=== PATIENT | female | born 1975 | race Caucasian/White ===

== ENCOUNTER 2016-04-11 12:18 | Emergency (ER) | payer OTHER ==
[~2016-04-11] VITALS: Ht 157.5 cm; Wt 54.0 kg
[2016-04-11 12:35] VITALS: PULSE 90; RESP 20; TEMP 98.6; O2SAT 98
[2016-04-11] MEDS ORDERED: ALPR.25 PO (12:47)
[2016-04-11] MEDS ORDERED: RANI150T PO (12:47)
--- NOTE | 2016-04-11 13:04 | PD ---
HPI Chief Complaint: Cold / Flu Symptoms Time Seen by Provider: 12:52 Travel History International Travel<30 days: No Contact w/Intl Traveler<30days: No Traveled to known affect area: No History of Present Illness HPI This 40-year-old female is complaining of some chest pressure. She had a head cold last week. She felt like it moved down to her chest and she was coughing. He went to see her doctor and the nurse practitioner put her on prednisone and a Z-Dany. The coughing has subsided but now she is having some pressure in the chest which is worse when she takes a deep breath. She's been feeling tired and sleepy at times. She feels like some sitting on her chest. He has a history of allergies but does not have a history of asthma. Is apparently wheezing when she went to see Dr. Leung. She has a history of GERD. She is not aware of fever. The pressure that she hasn't had chest is worse with deep breathing. PFSH Past Medical History Anxiety: Yes GERD: Yes ?: Unknown LMP: 4 WEEKS AGO Past Surgical History Cholecystectomy: Yes Social History Alcohol Use: Yes (WEEKLY, 3 GLASSES WINE) Tobacco Use: Yes (QUIT 5 YEARS AGO, / PPD) Substance Use: No Allergies-Medications (Allergen,Severity, Reaction): Coded Allergies: Leticialor (Verified Allergy, Severe, 04/11/16) Reported Meds & Prescriptions Reported Meds & Active Scripts Active Reported Ranitidine (Ranitidine HCl) 150 Mg Tab 150 Mg PO HS Xanax (Alprazolam) 0.25 Mg Tab 0.25 Mg PO Q6H PRN Review of Systems General / Constitutional: No: Fever, Chills Eyes: No: Diploplia, Blurred Vision HENT: No: Headaches Cardiovascular: Positive: Chest Pain or Discomfort Respiratory: Positive: Wheezing Gastrointestinal: No: Nausea, Vomiting Genitourinary: No: Urgency, Frequency Musculoskeletal: No: Myalgias, Arthralgias Skin: No Rash Physical Exam Narrative GENERAL: Well-developed female SKIN: Warm and dry. HEAD: Atraumatic. Normocephalic. EYES: Pupils equal and round. No scleral icterus. No injection or drainage. ENT: No nasal bleeding or discharge. Mucous membranes pink and moist. NECK: Trachea midline. No JVD. CARDIOVASCULAR: Regular rate and rhythm. No murmur appreciated. RESPIRATORY: No accessory muscle use. Clear to auscultation. Breath sounds equal bilaterally. GASTROINTESTINAL: Abdomen soft, non-tender, nondistended. Hepatic and splenic margins not palpable. MUSCULOSKELETAL: No obvious deformities. No clubbing. No cyanosis. No edema. NEUROLOGICAL: Awake and alert. No obvious cranial nerve deficits. Motor grossly within normal limits. Normal speech. PSYCHIATRIC: Appropriate mood and affect; insight and judgment normal. Data Data Last Documented VS Vital Signs Date Time Temp Pulse Resp B/P Pulse Ox O2 Delivery O2 Flow Rate FiO2 04/11/16 12:35 98.6 90 20 98 Orders Electrocardiogram (04/11/16 12:59) Complete Blood Count With Diff (04/11/16 12:59) Basic Metabolic Panel (Bmp) (04/11/16 12:59) Ed Urine Pregnancytest Poc (04/11/16 12:59) Chest, Pa & Lat (04/11/16 13:18) Potassium Chloride (Kcl) (04/11/16 14:45) Labs Laboratory Tests Test 04/11/16 13:05 White Blood Count 13.4 TH/MM3 Red Blood Count 4.52 MIL/MM3 Hemoglobin 13.9 GM/DL Hematocrit 40.9 % Mean Corpuscular Volume 90.5 FL Mean Corpuscular Hemoglobin 30.8 PG Mean Corpuscular Hemoglobin 34.0 % Concent Red Cell Distribution Width 12.1 % Platelet Count 327 TH/MM3 Mean Platelet Volume 8.2 FL Neutrophils (%) (Auto) 89.6 % Lymphocytes (%) (Auto) 8.8 % Monocytes (%) (Auto) 1.4 % Eosinophils (%) (Auto) 0.0 % Basophils (%) (Auto) 0.2 % Neutrophils # (Auto) 12.0 TH/MM3 Lymphocytes # (Auto) 1.2 TH/MM3 Monocytes # (Auto) 0.2 TH/MM3 Eosinophils # (Auto) 0.0 TH/MM3 Basophils # (Auto) 0.0 TH/MM3 CBC Comment DIFF FINAL Differential Comment Sodium Level 140 MEQ/L Potassium Level 3.4 MEQ/L Chloride Level 105 MEQ/L Carbon Dioxide Level 26.7 MEQ/L Anion Gap 8 MEQ/L Blood Urea Nitrogen 12 MG/DL Creatinine 0.69 MG/DL Estimat Glomerular Filtration 95 ML/MIN Rate Random Glucose 112 MG/DL Calcium Level 9.0 MG/DL MDM Medical Decision Making Medical Screen Exam Complete: Yes Emergency Medical Condition: Yes Medical Record Reviewed: Yes Differential Diagnosis Differential includes pneumonia, pleurisy, pericarditis Narrative Course EKG shows normal sinus rhythm. Chest x-ray was negative. White count is elevation in white count may be due to the steroids she was taking. I believe she has pleurisy and recommended anti-inflammatory medication Diagnosis Primary Impression: Pleurisy Additional Instructions: Take Motrin or Aleve for pain Disposition: 01 DISCHARGE HOME Condition: Stable Harpreet Adams MD Apr 11, 2016 13:04
[2016-04-11 13:16] LABS: BASOPHIL % 0.2 % (0.0-2.0); HEMATOCRIT 40.9 % (35.0-46.0); LYMPH % 8.8 % (9.0-44.0); LYMPHOCYTE # 1.2 TH/MM3 (1.0-4.8); MEAN CELL VOLUME 90.5 FL (80.0-100.0); MEAN CORPUSCULAR HEMOGLOBIN 30.8 PG (27.0-34.0); MONO % 1.4 % (0.0-8.0); NEUT % 89.6 % (16.0-70.0); PLATELET COUNT 327 TH/MM3 (150-450); RED BLOOD COUNT 4.52 MIL/MM3 (4.00-5.30); RED CELL DISTRIBUTION WIDTH 12.1 % (11.6-17.2); WHITE BLOOD COUNT 13.4 TH/MM3 (4.0-11.0)
[2016-04-11 13:18] LABS: HEMO FLAGS DIFF FINAL
[2016-04-11 13:30] LABS: POTASSIUM 3.4 MEQ/L (3.5-5.1)
[2016-04-11 13:33] LABS: BICARBONATE 26.7 MEQ/L (21.0-32.0)
--- NOTE | 2016-04-11 13:59 | RADHPO ---
EXAM DATE/TIME: 04/11/2016 13:29 [facility] COMPARISON: No previous studies available for comparison. INDICATIONS : Cold symptoms started one week ago and patient now has pressure in her chest, has been treated with a ntibiotics but symptoms persist MEDICAL HISTORY : None. SURGICAL HISTORY : None. ENCOUNTER: Initial ACUITY: 1 week PAIN SCORE: 6/10 LOCATION: Bilateral chest FINDINGS: PA and lateral views of the chest. The lungs are clear. Cardiomediastinal silhouette within normal li mits. No evidence of pleural effusion or pneumothorax. CONCLUSION: No acute cardiopulmonary disease identified. Ashok Linn MD on April 11, 2016 at 13:57 Board Certified Radiologist. This report was verified electronically.
[2016-04-11] MEDS ORDERED: POTASSIUM CHLORIDE 20 MEQ CONTROLLED RELEASE TAB PO ONE (14:45)
[2016-04-11 14:50] VITALS: BP 109/69; PULSE 72; RESP 20; O2SAT 98
--- NOTE | 2016-04-12 13:42 | EKG ---
Date Performed: 04/11/2016 Time Performed: 13:13:22 PTAGE: 40 years EKG: Sinus rhythm Normal ECG NO PREVIOUS TRACING DOCTOR: Lyn Fields Interpretating Date/Time 04/12/2016 13:35:37
== END 2016-04-11 14:55 | disposition home or self-care (01) ==
LOC: PHED 12:18
DX: R09.1 Pleurisy (principal)
CPT/HCPCS: 71020; 80048; 84703; 85025; 93005